=== PATIENT | male | born 1980 ===

== ENCOUNTER 2017-03-08 11:52 | Emergency (ER) | payer OTHER ==
--- NOTE | 2017-03-08 13:26 | RAD ---
HISTORY: Cough COMPARISON: 11/01/2016 TECHNIQUE: Chest PA and lateral FINDINGS: LUNGS: No active pulmonary disease. PLEURA: No significant pleural effusion identified. No pneumothorax apparent. CARDIOVASCULAR: Normal. OSSEOUS STRUCTURES: No significant abnormalities. VISUALIZED UPPER ABDOMEN: Normal. OTHER FINDINGS: None. IMPRESSION: No active disease.
--- NOTE | 2017-03-08 13:33 | C.PDOC ---
History Of Present Illness A 36 year old male presents to the emergency room for the evaluation of diffuse body aches and subjective fever since yesterday. Patient also reports a self- limited short episode of left sided chest pain yesterday. At the present time, patient denies any chest pain, shortness of breath, fever, chills, abdominal pain, nausea, vomiting, diarrhea, headaches, dizziness, or any other complaints. Time Seen by Provider: 03/08/17 13:05 Chief Complaint (Nursing): Flu-like Symptoms History Per: Patient History/Exam Limitations: no limitations Onset/Duration Of Symptoms: Days (2) Current Symptoms Are (Timing): Still Present Location Of Pain: Diffuse Myalgias Sick Contacts (Context): None Associated Symptoms: Fever (Subjective) Ear Symptoms: Bilateral: None Severity: Mild Recent travel outside of the [place]: No Past Medical History Reviewed: Historical Data, Nursing Documentation, Vital Signs Vital Signs: Last Vital Signs Temp 98.2 F 03/08/17 11:56 Pulse 87 03/08/17 11:56 Resp 20 03/08/17 11:56 BP 141/98 H 03/08/17 11:56 Pulse Ox 97 03/08/17 13:39 - [facility] Procedures CLOSURE SKIN & SUBCUTANEOUS NEC (07/21/13) INJECT/INFUSE NEC (07/20/05) PLAST OP HAND W GRFT NEC (07/26/13) TETANUS TOXOID ADMINIST (07/21/13) Family History: States: Unknown Family Hx - Social History Hx Tobacco Use: No Hx Alcohol Use: Yes Hx Substance Use: No - Immunization History Hx Tetanus Toxoid Vaccination: Yes Hx Influenza Vaccination: Yes (08/2014) Hx Pneumococcal Vaccination: No Review Of Systems Except As Marked, All Systems Reviewed And Found Negative. Constitutional: Positive for: Fever (Subjective - yesterday). Negative for: Chills Cardiovascular: Positive for: Chest Pain (Short episode yesterday. Currently resolved.). Negative for: Palpitations Respiratory: Negative for: Cough, Shortness of Breath, Wheezing Gastrointestinal: Negative for: Nausea, Vomiting, Abdominal Pain, Diarrhea Musculoskeletal: Positive for: Other (Diffuse body aches) Neurological: Negative for: Headache, Dizziness Physical Exam - Physical Exam Appears: Well, Non-toxic, No Acute Distress Skin: Normal Color, Warm, Dry Head: Atraumatic, Normacephalic Eye(s): bilateral: Normal Inspection Ear(s): Bilateral: Normal Nose: Normal, No Epistaxis, No Tenderness Oral Mucosa: Moist Tongue: Normal Appearing, No Swelling Lips: Normal Appearing, No Swelling Throat: Normal, No Erythema, No Exudate Neck: Normal, Normal ROM, No Midline Cervical Tenderness, No Paracervical Tenderness, Supple Chest: Symmetrical, No Deformity, No Tenderness Cardiovascular: Rhythm Regular Respiratory: Normal Breath Sounds, No Rales, No Rhonchi, No Wheezing Gastrointestinal/Abdominal: Normal Exam, Soft, No Tenderness, No Guarding, No Rebound Back: Normal Inspection, No Vertebral Tenderness Extremity: No Tenderness, No Pedal Edema, No Deformity, No Swelling Neurological/Psych: Oriented x3, Normal Speech, Normal Cognition, Normal Motor, Normal Sensation, Normal Reflexes ED Course And Treatment ECG: Interpreted By Me, Viewed By Me ECG Rhythm: Sinus Rhythm ECG Interpretation: Normal, No Acute Changes Interpretation Of ECG: No acute ST or T wave changes. No STEMI. Rate From EC O2 Sat by Pulse Oximetry: 97 Pulse Ox Interpretation: Normal - Radiology CXR: Interpreted by Me, Viewed By Me CXR Interpretation: Yes: No Acute Disease Progress Note: CXR and Influenza A B ordered. On re-evaluation, pt is afebrile , hemodynmaicaly s table. non-toxic. PulseOx 98%RA. ENT: no acute finidngs. neck: (-) meningeal sign. Lungs: CTA B/L, BS equal B/L. CVS: (+)S1S2, reg. Abd: benign. CXR, Influenza A (-). EKG- appears normal study. Pt has clinical findings c/w viral illness. Pt advised. ref. to F/u with PMD in 2-3 days for re-eval. return to ED if any worsening or new changes. Disposition Counseled Patient/Family Regarding: Studies Performed, Diagnosis, Need For Followup, Rx Given - Disposition Disposition: HOME/ ROUTINE Disposition Time: 13:20 Condition: STABLE Additional Instructions: Encourage fluids Bedrest for 2 days Follow up with PMD in 2-3 days for re-evaluation. Return to Ed if any worsening or new changes. Instructions: Viral Syndrome (ED) Forms: Work Excuse - Clinical Impression Clinical Impression: Influenza-like illness - Scribe Statement The provider has reviewed the documentation as recorded by the Enrique Torres All medical record entries made by the Enrique were at my direction and personally dictated by me. I have reviewed the chart and agree that the record accurately reflects my personal performance of the history, physical exam, medical decision making, and the department course for this patient. I have also personally directed, reviewed, and agree with the discharge instructions and disposition.
[2017-03-08 14:42] VITALS: BP 132/75; PULSE 85; RESP 18; TEMP 98.5; O2SAT 98
--- NOTE | 2017-03-11 08:32 | CARD ---
APPROVED REPORT EKG Measurement Heart [id number] <Conclusion> Normal sinus rhythm Normal ECG
== END 2017-03-08 14:44 | disposition home or self-care (01) ==
LOC: C.ER 11:52 → SUPCPDRO 11:52 → C.ER 14:44
DX: J11.1 Influenza due to unidentified influenza virus with other respiratory manifestations (principal)

== ENCOUNTER 2017-06-16 16:36 | Emergency (ER) | payer OTHER ==
[2017-06-16] MEDS ORDERED: Sodium Chloride 0.9% 1,000 ML IV ONE ×2 (17:05→18:44)
--- NOTE | 2017-06-16 17:08 | C.PDOC ---
History Of Present Illness <Carolee Redman - Last Filed: 06/16/17 18:47> <BensonHuiJose Juan R - Last Filed: 06/16/17 20:30> 37 year old male who presents to the ER with a complaint of generalized body aches, fever, and headache. Denies nausea, vomiting, or cough. (ЮлияBrittny scottCarolee A) History Per: Patient History/Exam Limitations: no limitations Onset/Duration Of Symptoms: Days Current Symptoms Are (Timing): Still Present Location Of Pain: Diffuse Myalgias, Headache Sick Contacts (Context): None Associated Symptoms: Fever, Myalgias. denies: Cough, Vomiting, Diarrhea Ear Symptoms: Bilateral: None Recent travel outside of the [place]: No <Carolee Redman - Last Filed: 06/16/17 18:47> <BensonJose Juan R - Last Filed: 06/16/17 20:30> Time Seen by Provider: 06/16/17 16:57 Chief Complaint (Nursing): Flu-like Symptoms Past Medical History Reviewed: Historical Data, Nursing Documentation, Vital Signs - Medical History PMH: No Chronic Diseases Surgical History: No Surg Hx Family History: States: Unknown Family Hx - Social History Hx Tobacco Use: No Hx Alcohol Use: Yes Hx Substance Use: No - Immunization History Hx Tetanus Toxoid Vaccination: Yes Hx Influenza Vaccination: Yes (08/2014) Hx Pneumococcal Vaccination: No <Carolee Redman - Last Filed: 06/16/17 18:47> <MarcelinoJose Juan R - Last Filed: 06/16/17 20:30> Vital Signs: Last Vital Signs Temp 99.9 F H 06/16/17 20:24 Pulse 107 H 06/16/17 20:24 Resp 18 06/16/17 20:24 BP 121/65 06/16/17 20:24 Pulse Ox 96 06/16/17 20:24 - [facility] Procedures CLOSURE SKIN & SUBCUTANEOUS NEC (07/21/13) INJECT/INFUSE NEC (07/20/05) PLAST OP HAND W GRFT NEC (07/26/13) TETANUS TOXOID ADMINIST (07/21/13) Review Of Systems Constitutional: Positive for: Fever. Negative for: Chills Respiratory: Negative for: Cough Gastrointestinal: Negative for: Nausea, Vomiting Musculoskeletal: Positive for: Other (Generalized body aches) Neurological: Positive for: Headache <Carolee Redman Last Filed: 06/16/17 18:47> Physical Exam - Physical Exam Appears: Non-toxic Skin: Normal Color, Warm, Dry Head: Atraumatic, Normacephalic Eye(s): bilateral: Normal Inspection, PERRL, EOMI Nose: Normal Oral Mucosa: Moist Throat: Normal Neck: Normal, Supple Chest: Symmetrical, No Tenderness Cardiovascular: Rhythm Regular, No Murmur Respiratory: Normal Breath Sounds, No Rales, No Rhonchi, No Wheezing Gastrointestinal/Abdominal: Soft, No Tenderness Extremity: Normal ROM (x4) Neurological/Psych: Oriented x3, Normal Speech, Normal Cognition, Normal Motor, Normal Sensation Gait: Steady <Carolee Redman Last Filed: 06/16/17 18:47> ED Course And Treatment - Laboratory Results Result Diagrams: 06/16/17 18:05 06/16/17 18:05 O2 Sat by Pulse Oximetry: 98 (Room air) Pulse Ox Interpretation: Normal Progress Note: Blood work, CXR, and urinalysis ordered. Toradol, reglan, and IV fluids administered. <Carolee Redman - Last Filed: 06/16/17 18:47> - Laboratory Results Result Diagrams: 06/16/17 18:05 06/16/17 18:05 <Jose Juan Benson - Last Filed: 06/16/17 20:30> Disposition - Disposition Disposition Time: 19:00 - POA Present On Arrival: None <Carolee Redman Last Filed: 06/16/17 18:47> Counseled Patient/Family Regarding: Studies Performed, Diagnosis - Disposition Disposition Time: 20:29 <Jose Juan Benson - Last Filed: 06/16/17 20:30> - Disposition Referrals: [facility] [Outside] Disposition: HOME/ ROUTINE Condition: STABLE Prescriptions: Acetaminophen [Tylenol 325mg tab] 650 mg PO Q4 #20 tab Instructions: Fever in Adults (ED) Forms: [facility] (Portuguese) - Clinical Impression Clinical Impression: Fever, Viral illness - Scribe Statement The provider has reviewed the documentation as recorded by the Scribe <Carolee Redman Last Filed: 06/16/17 18:47> <Jose Juan Benson - Last Filed: 06/16/17 20:30> - Scribe Statement Carlito Tsai All medical record entries made by the Scribe were at my direction and personally dictated by me. I have reviewed the chart and agree that the record accurately reflects my personal performance of the history, physical exam, medical decision making, and the department course for this patient. I have also personally directed, reviewed, and agree with the discharge instructions and disposition. (Carolee Redman) Physician Patient Turnover Patient Signed Over To: Jose Juan Benson Handoff Comments: pending temp and additional fluids <Carolee Redman - Last Filed: 06/16/17 18:47>
--- NOTE | 2017-06-16 17:29 | RAD ---
HISTORY: SOB COMPARISON: Chest x-ray performed 03/08/17 TECHNIQUE: Chest PA and lateral FINDINGS: LUNGS: No focal consolidation. Please note that chest x-ray has limited sensitivity for the detection of pulmonary masses. PLEURA: No significant pleural effusion identified. No definite pneumothorax . CARDIOVASCULAR: The cardiomediastinal silhouette appears within normal limits of size. OSSEOUS STRUCTURES: No acute osseous abnormality identified. VISUALIZED UPPER ABDOMEN: Unremarkable. OTHER FINDINGS: None. IMPRESSION: No focal consolidation, significant pleural effusion, or definite pneumothorax identified.
[2017-06-16] MEDS ORDERED: Sodium Chloride 0.9% 1,000 ML ONE ×2 (17:53→18:55)
[2017-06-16 18:11] LABS: BASO % 0.4 % (0.0-2.0); EOS % 0.1 % (0.0-4.0); HEMATOCRIT 45.5 % (35.0-51.0); LYMPH # 0.6 K/uL (1.0-4.3); MEAN CELL VOLUME 88.3 fL (80.0-94.0); MEAN CORPUSCULAR HEMOGLOBIN 30.8 pg (27.0-31.0); MEAN CORPUSCULAR HGB CONC 34.9 g/dL (33.0-37.0); MEAN PLATELET VOLUME 7.4 fL (7.2-11.7); MONO # 0.7 K/uL (0.0-0.8); MONO % 7.3 % (0.0-10.0); PLATELET COUNT 211 K/uL (130-400); RED CELL DISTRIBUTION WIDTH 13.1 % (11.5-14.5); WHITE BLOOD COUNT 9.2 K/uL (4.8-10.8)
[2017-06-16 18:17] LABS: CHLORIDE 98 mmol/L (98-107); SODIUM 138 mmol/L (132-148)
[2017-06-16 18:19] LABS: ALB/GLOB RATIO 1.2 (1.0-2.1); ALKALINE PHOSPHATASE 120 U/L (38-126); AST/SGOT 59 U/L (17-59); BILIRUBIN,TOTAL 0.7 mg/dL (0.2-1.3); CARBON DIOXIDE 25 mmol/L (22-30); GFR AFRICAN-AMERICAN > 60; TOTAL PROTEIN 7.7 g/dL (6.3-8.3)
[2017-06-16 18:20] LABS: ALT/SGPT 99 U/L (21-72); BLOOD UREA NITROGEN 10 mg/dL (9-20); CALCIUM 8.9 mg/dl (8.6-10.4); GLUCOSE,RANDOM 91 mg/dL (75-110)
[2017-06-16 18:34] LABS: RBC URINE < 1 /hpf (0-3); URINE BILIRUBIN NEGATIVE (NEGATIVE); URINE BLOOD NEGATIVE (NEGATIVE); URINE COLOR Straw (YELLOW); URINE GLUCOSE (UA) NORMAL (Normal); URINE KETONE NEGATIVE (NEGATIVE); URINE LEUKOCYTE ESTERASE NEG Leu/uL (Negative); URINE PROTEIN NEGATIVE (NEGATIVE); URINE UROBILINOGEN NORMAL mg/dL (0.2-1.0); WBC URINE < 1 /hpf (0-5)
[2017-06-16 18:47] VITALS: RESP 18
[2017-06-16 18:49] LABS: NEUTROPHIL 90 % (50-75); REACTIVE LYMPHOCYTES 1 % (0-0); TOTAL CELLS COUNTED 100
[2017-06-16 20:27] VITALS: BP 121/65; PULSE 107; TEMP 99.9; O2SAT 96
== END 2017-06-16 20:39 | disposition home or self-care (01) ==
LOC: C.ER 16:36
DX: B34.9 Viral infection, unspecified (principal); R50.81 Fever presenting with conditions classified elsewhere
CPT/HCPCS: 71020; 80053; 81001; 85025; 87804; 96361; 96374; 96375; 99285; J1885; J2765; J7040

== ENCOUNTER 2017-06-18 20:27 | Emergency (ER) | payer OTHER ==
[2017-06-18 20:44] VITALS: BP 176/82; PULSE 16; RESP 97; TEMP 100.6; O2SAT 94
--- NOTE | 2017-06-18 21:03 | C.PDOC ---
History Of Present Illness 37 year old male who presents to the ER with a complaint of generalized body aches, fever, and headache. Denies nausea, vomiting, or cough. Patient seen in ED 2 days ago and diagnosed with virus, and patient reports symptoms persist. Time Seen by Provider: 06/18/17 20:52 Chief Complaint (Nursing): Flu-like Symptoms History Per: Patient History/Exam Limitations: no limitations Onset/Duration Of Symptoms: Days Current Symptoms Are (Timing): Still Present Location Of Pain: Diffuse Myalgias, Headache Associated Symptoms: Fever. denies: Cough, Nausea, Vomiting, Diarrhea Severity: Mild Recent travel outside of the [place]: No Past Medical History Reviewed: Historical Data, Nursing Documentation, Vital Signs Vital Signs: Last Vital Signs Temp 100.6 F H 06/18/17 20:39 Pulse 16 L 06/18/17 20:39 Resp 97 H 06/18/17 20:39 BP 176/82 H 06/18/17 20:39 Pulse Ox 94 L 06/18/17 21:17 - Medical History PMH: No Chronic Diseases - [facility] Procedures CLOSURE SKIN & SUBCUTANEOUS NEC (07/21/13) INJECT/INFUSE NEC (07/20/05) PLAST OP HAND W GRFT NEC (07/26/13) TETANUS TOXOID ADMINIST (07/21/13) Family History: States: Unknown Family Hx - Social History Hx Tobacco Use: No Hx Alcohol Use: Yes Hx Substance Use: No - Immunization History Hx Tetanus Toxoid Vaccination: Yes Hx Influenza Vaccination: Yes (08/2014) Hx Pneumococcal Vaccination: No Review Of Systems Constitutional: Positive for: Fever, Malaise, Other (generalized body aches) ENT: Negative for: Ear Pain, Nose Congestion, Throat Pain Cardiovascular: Negative for: Chest Pain, Palpitations Respiratory: Negative for: Cough, Shortness of Breath Gastrointestinal: Negative for: Nausea, Vomiting, Diarrhea Musculoskeletal: Positive for: Other (bodyaches) Skin: Negative for: Rash Neurological: Positive for: Headache Physical Exam - Physical Exam Appears: Non-toxic, No Acute Distress Skin: Warm, Dry, No Rash Head: Atraumatic, Normacephalic Eye(s): bilateral: Normal Inspection, EOMI Ear(s): Bilateral: Normal Nose: Normal Oral Mucosa: Moist Throat: Normal, No Erythema Neck: Normal, Normal ROM, Supple Chest: Symmetrical Cardiovascular: Rhythm Regular Respiratory: Normal Breath Sounds, No Rales, No Rhonchi, No Wheezing Gastrointestinal/Abdominal: Normal Exam, Soft, No Tenderness Extremity: Bilateral: Atraumatic, Normal Color And Temperature, Normal ROM Neurological/Psych: Oriented x3, Normal Speech Gait: Steady ED Course And Treatment O2 Sat by Pulse Oximetry: 94 (room air) Pulse Ox Interpretation: Normal Medical Decision Making Medical Decision Makin37 year old male who presents to the ER with a complaint of generalized body aches, fever, and headache. Patient seen in ED 2 days ago with full workup including EKG, CXR and labs. All diagnostics reviewed with no acute findings and patient diagnosed with virus. On exam today in ED patient appears nontoxic and in no acute distress, he has low grade fever. Patient is asking for work note to return on Wednesday. Advise patient to drink fluids and rest and continue with Motrin or Tylenol for fever every 6 hours. Disposition Counseled Patient/Family Regarding: Diagnosis, Need For Followup, Rx Given - Disposition Disposition: HOME/ ROUTINE Disposition Time: 21:02 Condition: STABLE Additional Instructions: You have viral infection. Take Tylenol or Motrin alternating every 4-6 hours for Fever 100.4F or higher. Rest and drink plenty of fluids. 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 - Scribe Statement The provider has reviewed the documentation as recorded by the Enrique Rahman All medical record entries made by the Enrique were at my direction and personally dictated by me. I have reviewed the chart and agree that the record accurately reflects my personal performance of the history, physical exam, medical decision making, and the department course for this patient. I have also personally directed, reviewed, and agree with the discharge instructions and disposition.
== END 2017-06-18 21:15 | disposition home or self-care (01) ==
LOC: C.ER 20:27
DX: B34.9 Viral infection, unspecified (principal); R50.9 Fever, unspecified

== ENCOUNTER 2017-09-06 09:00 | Emergency (ER) | payer OTHER ==
[2017-09-06 09:11] VITALS: TEMP 98.7
[2017-09-06] MEDS ORDERED: Sodium Chloride 0.9% 1,000 ML IV ONE (09:48)
[2017-09-06] MEDS ORDERED: Sodium Chloride 0.9% 1,000 ML ONE (10:02)
[2017-09-06 10:09] LABS: BASO % 0.7 % (0.0-2.0); EOS % 0.6 % (0.0-4.0); HEMATOCRIT 50.5 % (35.0-51.0); LYMPH # 1.4 K/uL (1.0-4.3); LYMPH % 32.3 % (20.0-40.0); MEAN CELL VOLUME 89.7 fL (80.0-94.0); MEAN CORPUSCULAR HEMOGLOBIN 30.8 pg (27.0-31.0); MEAN CORPUSCULAR HGB CONC 34.4 g/dL (33.0-37.0); MEAN PLATELET VOLUME 7.4 fL (7.2-11.7); MONO # 0.5 K/uL (0.0-0.8); MONO % 11.4 % (0.0-10.0); NRBC % 0.3 % (0.0-2.0); RED CELL DISTRIBUTION WIDTH 13.5 % (11.5-14.5)
[2017-09-06 10:15] LABS: CHLORIDE 101 mmol/L (98-107); POTASSIUM 4.3 mmol/L (3.6-5.2); SODIUM 137 mmol/L (132-148)
[2017-09-06 10:17] LABS: BILIRUBIN,TOTAL 0.6 mg/dL (0.2-1.3); GFR AFRICAN-AMERICAN > 60
[2017-09-06 10:18] LABS: ALB/GLOB RATIO 1.2 (1.0-2.1); ALKALINE PHOSPHATASE 133 U/L (38-126); ALT/SGPT 138 U/L (21-72); AST/SGOT 76 U/L (17-59); BLOOD UREA NITROGEN 10 mg/dL (9-20); CARBON DIOXIDE 24 mmol/L (22-30); GLUCOSE,RANDOM 108 mg/dL (75-110); TOTAL PROTEIN 8.5 g/dL (6.3-8.3)
[2017-09-06 10:19] LABS: CALCIUM 8.8 mg/dl (8.6-10.4)
[2017-09-06 10:23] LABS: WHITE BLOOD COUNT 4.2 K/uL (4.8-10.8)
--- NOTE | 2017-09-06 11:25 | CT ---
PROCEDURE: CT scan temporal bones dated 09/06/2017. . HISTORY: Right side pain/swelling, r/o mastoiditis. COMPARISON: No prior study available for comparison. TECHNIQUE: .High resolution axial images of the temporal bones were obtained. Coronal and sagittal reformats were generated.. Radiation dose: Total exam DLP = 706.54 mGy-cm. This CT exam was performed using one or more of the following dose reduction techniques: Automated exposure control, adjustment of the mA and/or kV according to patient size, and/or use of iterative reconstruction technique. FINDINGS: RIGHT TEMPORAL BONE: RIGHT MIDDLE EAR: Normal. RIGHT INNER EAR: Cochlea: Normal. Semicircular canals: Normal. RIGHT MASTOID AIR CELLS: Normal. RIGHT INTERNAL AUDITORY CANAL: Normal. RIGHT EXTERNAL AUDITORY CANAL: Normal. RIGHT VESTIBULAR AND COCHLEAR AQUEDUCT: Normal. OTHER FINDINGS: None. LEFT TEMPORAL BONE: LEFT MIDDLE EAR: Normal. LEFT INNER EAR: Cochlea: Normal. Semicircular canals: Normal. LEFT MASTOID AIR CELLS: Normal. LEFT INTERNAL AUDITORY CANAL: Normal. LEFT EXTERNAL AUDITORY CANAL: Normal. LEFT VESTIBULAR AND COCHLEAR AQUEDUCTS: Normal. OTHER FINDINGS: None. IMPRESSION: Unremarkable non contrast enhanced CT of the temporal bones.. The note is made of a prominent elliptical shaped focus of polypoid like mucosal thickening and a mucous retention cyst formation within the right maxillary sinus.
--- NOTE | 2017-09-06 11:49 | C.PDOC ---
History Of Present Illness Pt c/o body aches and pain/swelling behind his right ear. Time Seen by Provider: 09/06/17 09:33 Chief Complaint (Nursing): Headache History Per: Patient Onset/Duration Of Symptoms: Days (2), Gradual Current Symptoms Are (Timing): Still Present Severity: Moderate Front/Back Head: 1 - pain/swelling Quality: "Pain" Associated Symptoms: denies: Photophobia, Blurred Vision, Vomiting, Extremity Weakness Recent travel outside of the [place]: Yes (Returned from [place] last week) Additional History Per: Prior Records Past Medical History Reviewed: Historical Data, Nursing Documentation, Vital Signs Vital Signs: Last Vital Signs Temp 98.7 F 09/06/17 09:09 Pulse 90 09/06/17 09:09 Resp 20 09/06/17 09:09 BP 154/93 H 09/06/17 09:09 Pulse Ox 98 09/06/17 09:09 - Medical History PMH: No Chronic Diseases Surgical History: No Surg Hx - [facility] Procedures CLOSURE SKIN & SUBCUTANEOUS NEC (07/21/13) INJECT/INFUSE NEC (07/20/05) PLAST OP HAND W GRFT NEC (07/26/13) TETANUS TOXOID ADMINIST (07/21/13) Family History: States: Unknown Family Hx - Social History Hx Tobacco Use: No Hx Alcohol Use: Yes Hx Substance Use: No - Immunization History Hx Tetanus Toxoid Vaccination: No Hx Influenza Vaccination: Yes Hx Pneumococcal Vaccination: No Review Of Systems Except As Marked, All Systems Reviewed And Found Negative. Constitutional: Positive for: Malaise. Negative for: Fever Eyes: Negative for: Pain, Vision Change ENT: Negative for: Ear Pain, Ear Discharge, Nose Congestion, Throat Pain Cardiovascular: Negative for: Chest Pain Respiratory: Negative for: Cough, Shortness of Breath Gastrointestinal: Negative for: Vomiting, Abdominal Pain, Diarrhea Genitourinary: Negative for: Dysuria Musculoskeletal: Negative for: Neck Pain Skin: Positive for: Rash (on buttock for 2 weeks, itchy.) Neurological: Negative for: Weakness, Numbness, Incoordination, Change in Speech , Confusion, Seizures, Altered Mental Status Physical Exam - Physical Exam Appears: Non-toxic, No Acute Distress Skin: Normal Color, Warm, Dry, Rash (on gluteal cleft, looks fungal) Head: Atraumatic, Swelling (small swollen, tender area behing the right ear) Eye(s): bilateral: PERRL, EOMI, Other (conjunctival injection) Ear(s): Bilateral: Normal Throat: Normal Neck: Normal ROM, Supple Lymphatic: Adenopathy (cervical) Cardiovascular: Rhythm Regular Respiratory: Normal Breath Sounds, No Accessory Muscle Use Gastrointestinal/Abdominal: Soft, No Tenderness Back: No CVA Tenderness Extremity: Normal ROM Neurological/Psych: Oriented x3, Normal Speech, Normal Cognition, Normal Motor, Normal Sensation ED Course And Treatment - Laboratory Results Result Diagrams: 09/06/17 10:02 09/06/17 10:02 O2 Sat by Pulse Oximetry: 98 Pulse Ox Interpretation: Normal - CT Scan/US CT Mastoids Other Rad Studies (CT/US): Read By Radiologist, Radiology Report Reviewed CT/US Interpretation: IMPRESSION: Unremarkable non contrast enhanced CT of the temporal bones.. The note is made of a prominent elliptical shaped focus of polypoid like mucosal thickening and a mucous retention cyst formation within the right maxillary sinus. Progress - Interventions Interventions:: Observation, Intravenous fluid - Medications Administered Intravenous: NSAID - Data Reviewed Data Reviewed: Lab, Diagnostic imaging, Old records - Patient Status Patient status: Mostly improved - Continuity of Care Discussed patient case with:: Patient, ED Nurse - Patient Plan Patient Plan: Discharge, F/U with PCP Disposition Counseled Patient/Family Regarding: Studies Performed, Diagnosis, Need For Followup, Rx Given - Disposition Disposition: HOME/ ROUTINE Disposition Time: 11:51 Condition: IMPROVED Additional Instructions: Drink plenty of fluids. Follow up with your doctor this week for further evaluation and treatment. Return to the ER if you develop high fever, lethargy, vomiting, worsening of symptoms or if you have any other concerns. Prescriptions: Amoxicillin/Clavulanate [Augmentin 875 MG-125 MG] 1 tab PO BID #20 tab Clotrimazole 1% Cream [Lotrimin 1%] 1 applic EXT BID #1 tube Instructions: Tinea Corporis (ED) Forms: [facility] (Urdu), General Discharge Instructions, Work Excuse - Clinical Impression Clinical Impression: Swelling, mass, or lump in head and neck, Tinea
[2017-09-06 12:07] VITALS: BP 126/76; PULSE 79; RESP 18; O2SAT 99
== END 2017-09-06 12:07 | disposition home or self-care (01) ==
LOC: C.ER 09:00
DX: R22.0 Localized swelling, mass and lump, head (principal); R22.1 Localized swelling, mass and lump, neck; B35.9 Dermatophytosis, unspecified
CPT/HCPCS: 70480; 80053; 85025; 96361; 96374; 99285; J1885; J7040

== ENCOUNTER 2018-10-15 13:52 | Observation (INO) | payer OTHER ==
--- NOTE | 2018-10-15 15:06 | C.PDOC ---
History Of Present Illness 38 yr old male w/ hx of lap band surgery 10 years prior p/w abdominal pain, fever, nausea. All began at 0300 this morning, first time occurence. No vomiting or diarrhea or constipation. No dark or bloody stool. Pt denies any cough. No dysuria, urgency of frequency. No chest pain or sob No headache No neck stiffness no rash No fall or trauma No complaints. Bariatric Surgeon: Dr. Mandujano Time Seen by Provider: 10/15/18 15:06 Chief Complaint (Nursing): Abdominal Pain Past Medical History Vital Signs: Last Vital Signs Temp 101.4 F H 10/15/18 14:12 Pulse 131 H 10/15/18 14:12 Resp 20 10/15/18 14:12 BP 144/92 H 10/15/18 14:12 Pulse Ox 97 10/15/18 14:12 - [facility] Procedures CLOSURE SKIN & SUBCUTANEOUS NEC (07/21/13) INJECT/INFUSE NEC (07/20/05) PLAST OP HAND W GRFT NEC (07/26/13) TETANUS TOXOID ADMINIST (07/21/13) Family History: States: Unknown Family Hx - Social History Hx Tobacco Use: No Hx Alcohol Use: Yes Hx Substance Use: No - Immunization History Hx Tetanus Toxoid Vaccination: No Hx Influenza Vaccination: Yes Hx Pneumococcal Vaccination: No Review Of Systems Constitutional: Positive for: Fever, Chills Eyes: Negative for: Pain, Vision Change ENT: Negative for: Ear Pain, Ear Discharge Cardiovascular: Negative for: Chest Pain, Palpitations, Edema Respiratory: Negative for: Cough, Shortness of Breath, SOB with Excertion Gastrointestinal: Positive for: Nausea, Abdominal Pain. Negative for: Vomiting, Diarrhea, Constipation, Melena, Hematochezia, Hematemesis Genitourinary: Negative for: Dysuria, Frequency, Penile Discharge, Scrotal Pain, Rash, Penile Pain Musculoskeletal: Negative for: Neck Pain, Shoulder Pain Skin: Negative for: Rash, Lesions Neurological: Negative for: Weakness, Numbness Physical Exam - Physical Exam Appears: Well, Non-toxic, No Acute Distress Skin: Normal Color, Warm Head: Atraumatic, Normacephalic Eye(s): bilateral: Normal Inspection, PERRL, EOMI Nose: Normal, No Flaring, No Discharge Oral Mucosa: Moist Tongue: Normal Appearing Lips: Normal Appearing Teeth: Normal Dentition Gingiva: Normal Appearing Throat: Normal, No Erythema, No Exudate Neck: Normal, Normal ROM, Supple, Other (no meningeal signs) Chest: Symmetrical, No Deformity Cardiovascular: Rhythm Regular Respiratory: Normal Breath Sounds Gastrointestinal/Abdominal: Normal Exam, No Tenderness, No Mass, No Distention, No Guarding, No Rebound, No Hernia, No Ascites Back: Normal Inspection, No CVA Tenderness Extremity: Normal ROM Neurological/Psych: Oriented x3, Normal Speech, Normal Cognition Gait: Steady ED Course And Treatment - Laboratory Results Result Diagrams: 10/15/18 15:12 10/15/18 15:12 O2 Sat by Pulse Oximetry: 97 Medical Decision Making Medical Decision Makin yr old male p/w nausea, abdominal pain and chills. Will seek imaging given hx of lap band. Largely unremarkable abd exam otherwise, non-ttp. Likely viral gastro. Pending imaging and labs. 1800 CT: Mesenteric adenitis: lap band in place. Dr. Mandujano, bariatric surgery, was paged. Waiting for response. 180 2nd L of fluids hanging Spoke with Dr. James on for Dr. Mandujano. No further indication for images or tests. Pain likely non-related to lap band. 1950 pt remains in NAD, protecting airway and without pleurtic chest pain labs largely unremarkable however remains tachy: and still with abd pain. Given recurrent pain and tachy: will likely seek obs Appreciate consult w/ Dr. Garrison: to admit to his service Disposition - Disposition Disposition Time: 19:51 Condition: GOOD - Clinical Impression Clinical Impression: Abdominal pain, Mesenteric adenitis
[2018-10-15] MEDS ORDERED: Sodium Chloride 0.9% 1,000 ML IV ONE (15:13)
[2018-10-15 15:16] LABS: BASO % 0.4 % (0.0-2.0); EOS % 0.1 % (0.0-4.0); HEMOGLOBIN 17.3 g/dL (12.0-18.0); LYMPH # 0.5 K/uL (1.0-4.3); MEAN CELL VOLUME 89.3 fL (80.0-94.0); MEAN CORPUSCULAR HEMOGLOBIN 31.1 pg (27.0-31.0); MEAN CORPUSCULAR HGB CONC 34.9 g/dL (33.0-37.0); MEAN PLATELET VOLUME 7.6 fL (7.2-11.7); MONO # 0.5 K/uL (0.0-0.8); NEUT # 11.3 K/uL (1.8-7.0); NEUT % 91.5 % (50.0-75.0); PLATELET COUNT 262 K/uL (130-400); RBC 5.57 Mil/uL (4.40-5.90); RED CELL DISTRIBUTION WIDTH 13.1 % (11.5-14.5); WHITE BLOOD COUNT 12.3 K/uL (4.8-10.8)
[2018-10-15 15:22] LABS: SQUAMOUS EPITHIAL < 1 /hpf (0-5); URINE BILIRUBIN NEGATIVE (NEGATIVE); URINE BLOOD 1+ (NEGATIVE); URINE CLARITY Clear (Clear); URINE COLOR Yellow (YELLOW); URINE GLUCOSE (UA) NORMAL (Normal); URINE LEUKOCYTE ESTERASE NEG Leu/uL (Negative); URINE PROTEIN NEGATIVE (NEGATIVE); URINE UROBILINOGEN NORMAL mg/dL (0.2-1.0)
[2018-10-15] MEDS ORDERED: Sodium Chloride 0.9% 1,000 ML ONE ×2 (15:26→18:22)
[2018-10-15 15:31] LABS: ALB/GLOB RATIO 1.2 (1.0-2.1); ALBUMIN 4.3 g/dL (3.5-5.0); ALT/SGPT 70 U/L (21-72); AST/SGOT 45 U/L (17-59); BLOOD UREA NITROGEN 14 mg/dL (9-20); CALCIUM 8.4 mg/dl (8.6-10.4); GFR NON-AFRICAN AMERICAN > 60; LIPASE 78 U/L (23-300)
[2018-10-15 15:44] LABS: BANDS 1 % (0-2); LARGE PLATELETS PRESENT; LYMPHOCYTE 3 % (20-40); MONOCYTE 3 % (0-10); NEUTROPHIL 93 % (50-75); PLATELET ESTIMATE NORMAL (NORMAL); TOTAL CELLS COUNTED 100
--- NOTE | 2018-10-15 16:57 | CT ---
Date of service: 10/15/2018 PROCEDURE: CT Abdomen and Pelvis with contrast HISTORY: hx of lap band, diffuse abd pain COMPARISON: None. TECHNIQUE: Contrast dose: 100 mL Visipaque 320 Radiation dose: Total exam DLP = 1278.45 mGy-cm. This CT exam was performed using one or more of the following dose reduction techniques: Automated exposure control, adjustment of the mA and/or kV according to patient size, and/or use of iterative reconstruction technique. FINDINGS: LOWER THORAX: Very small hiatal hernia. No infiltrate/effusion. LIVER: Diffusely diminished attenuation consistent with fatty infiltration. Mild hepatomegaly. Liver measures 22.8 cm craniocaudal. Smooth contour. No mass. No biliary dilatation. GALLBLADDER AND BILE DUCTS: Contracted. No calcified gallstones. PANCREAS: Unremarkable. No gross lesion or ductal dilatation. SPLEEN: Mild splenomegaly. The spleen measures 15.1 cm in greatest dimension. ADRENALS: Unremarkable. No mass. KIDNEYS AND URETERS: Unremarkable. No hydronephrosis. No solid mass. VASCULATURE: Unremarkable. No aortic aneurysm. No aortic atherosclerotic calcification or mural plaque present. BOWEL: A gastric band is noted. This is connected to a port over the right lower anterior abdominal wall. There is diverticulosis throughout the colon most prominently in the transverse colon. There is no evidence of diverticulitis. There is no bowel obstruction. APPENDIX: Normal appendix. PERITONEUM: Unremarkable. No free fluid. No free air. LYMPH NODES: Shotty subcentimeter lymph nodes are noted in the small bowel mesenteric and medial to the cecum/ascending colon. Nonspecific. Possible mesenteric adenitis. BLADDER: Unremarkable. REPRODUCTIVE: Normal prostate BONES: No acute fracture. OTHER FINDINGS: None. IMPRESSION: Gastric band in grossly appropriate position. Mild hepatosplenomegaly with fatty infiltration of the liver. Possible mesenteric adenitis. Colonic diverticulosis without evidence of diverticulitis. No other significant abnormality.
--- NOTE | 2018-10-15 18:12 | RAD ---
Date of service: 10/15/2018 HISTORY: febrile, tachy COMPARISON: 06/16/2017 TECHNIQUE: Chest PA and lateral FINDINGS: LUNGS: No active pulmonary disease. PLEURA: No significant pleural effusion identified. No pneumothorax apparent. CARDIOVASCULAR: No aortic atherosclerotic calcification present. Normal cardiac size. No pulmonary vascular congestion. OSSEOUS STRUCTURES: No significant abnormalities. VISUALIZED UPPER ABDOMEN: Normal. OTHER FINDINGS: None. IMPRESSION: No active disease.
[2018-10-15] MEDS: Sodium Chloride 0.9% 1,000 ML IV SCH (18:18)
[2018-10-15] MEDS ORDERED: Morphine 4 MG/ML VIAL ONE (20:03)
[2018-10-16] MEDS: Sodium Chloride 0.9% 1,000 ML IV SCH ×3 (05:53→13:46)
[2018-10-16] MEDS: Ciprofloxacin 400mg/200ml D5W 400 MG/200 ML BAG IVPB SCH (13:31)
[2018-10-16] MEDS: Belladonna-Phenobarbital PO SCH ×2 (14:14→17:33)
[2018-10-16] MEDS: metroNIDAZOLE IV 500 mg/100 ml 500 MG/100 ML BAG IVPB SCH (16:00)
[2018-10-17] MEDS: metroNIDAZOLE IV 500 mg/100 ml 500 MG/100 ML BAG IVPB SCH ×2 (00:36→10:38)
[2018-10-17] MEDS: Sodium Chloride 0.9% 1,000 ML IV SCH ×2 (00:40→10:39)
[2018-10-17] MEDS: Ciprofloxacin 400mg/200ml D5W 400 MG/200 ML BAG IVPB SCH ×2 (02:07→14:11)
--- NOTE | 2018-10-17 10:00 | HP ---
HISTORY OF PRESENT ILLNESS: A 38-year-old male with history of lap-band and now complaining of abdominal pain, nausea but no vomiting. The patient came to the ER, advised admission. PHYSICAL EXAMINATION: GENERAL: The patient is awake, alert, and oriented. VITAL SIGNS: Temperature 98, pulse 90. HEENT: Within normal limits. NECK: Supple. CHEST: Symmetrical. HEART: Regular. ABDOMEN: Soft. EXTREMITIES: No edema. ASSESSMENT AND PLAN: The patient suffers from mesenteric adenitis. The patient to bed rest, supportive care, intravenous fluids, and antibiotics. Vj Garrison MD
[2018-10-17] MEDS: Belladonna-Phenobarbital PO SCH ×2 (10:39→14:16)
[2018-10-17] MEDS ORDERED: Lidocaine Hydrochloride 5 ML INJ ONE (11:34)
[2018-10-17] MEDS ORDERED: Propofol 10 mg/ml Inj (20 ML) ONE ×2 (11:34)
[2018-10-17 12:27] VITALS: O2SAT 97
--- NOTE | 2018-10-17 13:43 | CP.PCM.PN ---
Subjective - Date & Time of Evaluation Date of Evaluation: 10/17/18 Time of Evaluation: 13:40 - Subjective Subjective: PGY3 Note for Dr. Bliss This patient was seen and examined at bedside; he denies any complaints overnight or this AM; states he has not had any nausea/vomiting since he was admitted to the hospital and denies all complaints and would like to go home. Objective - Vital Signs/Intake and Output Vital Signs (last 24 hours): Temp Pulse Resp BP Pulse Ox 98.3 F 73 12 118/75 97 10/17/18 11:50 10/17/18 12:20 10/17/18 12:20 10/17/18 12:20 10/17/18 12:45 Intake and Output: 10/17/18 10/17/18 06:59 18:59 Intake Total 1000 1550 Output Total 200 Balance 1000 1350 - Medications Medications: Current Medications Belladonna/Phenobarbital () 1 tab PO TID [facility] Last Admin: 10/17/18 10:39 Dose: Not Given Sodium Chloride (Sodium Chloride 0.9%) 1,000 mls @ 100 mls/hr IV .Q10H FABIAN Last Admin: 10/17/18 10:39 Dose: Not Given Ciprofloxacin (Cipro 400mg/200ml Dsw) 400 mg in 200 mls @ 133 mls/hr IVPB Q12H FABIAN; Protocol Last Admin: 10/17/18 02:07 Dose: 133 mls/hr Metronidazole (Flagyl) 500 mg in 100 mls @ 100 mls/hr IVPB Q8H FABIAN; Protocol Last Admin: 10/17/18 10:38 Dose: 100 mls/hr Metoclopramide HCl (Reglan) 5 mg IVP Q6 [facility]IAN Last Admin: 10/17/18 12:35 Dose: Not Given Sucralfate (Carafate Tab) 1 gm PO ACBHS FABIAN - Labs Labs: 10/15/18 15:12 10/15/18 15:12 - Constitutional Appears: Well, Non-toxic - Head Exam Head Exam: ATRAUMATIC, NORMAL INSPECTION - Eye Exam Eye Exam: EOMI, Normal appearance, PERRL Pupil Exam: NORMAL ACCOMODATION, PERRL - ENT Exam ENT Exam: Mucous Membranes Moist, Normal Exam - Respiratory Exam Respiratory Exam: Clear to Ausculation Bilateral, NORMAL BREATHING PATTERN. absent: Rales, Rhonchi, Wheezes - Cardiovascular Exam Cardiovascular Exam: REGULAR RHYTHM, +S1, +S2 - GI/Abdominal Exam GI & Abdominal Exam: Soft, Normal Bowel Sounds. absent: Bruit, Distended, Firm, Guarding, Rigid, Tenderness, Hypoactive Bowel Sounds, Mass, Organomegaly, Pulsatile Mass, Rebound - Extremities Exam Extremities Exam: Full ROM. absent: Calf Tenderness - Back Exam Back Exam: NORMAL INSPECTION. absent: CVA tenderness (L), CVA tenderness (R) - Neurological Exam Neurological Exam: Alert, Awake, Oriented x3 - Psychiatric Exam Psychiatric exam: Normal Affect - Skin Skin Exam: Warm Assessment and Plan - Assessment and Plan (Free Text) Assessment: 38yo M admitted for abdominal pain and nausea/vomiting which have resolved Abdominal pain/nausea/vomiting;resolved -hx of lap band surgery -EGD done; showed peptic ulcer disease; non bleeding; GI recommonds 1 mo f/u interval -protonix daily 40mg -regular diet patient takes no other medicines The patient is stable for d/c as per Dr. Bliss THe patient needs to followup with GI; Dr. Corado; within the month for a repeat EGD; it would be advised to followup earlier to schedule the EGD as this could take some time Raheem Mane PGY3
[2018-10-17 16:27] VITALS: BP 146/97; PULSE 78; RESP 20; TEMP 99.2
== END 2018-10-17 16:41 | disposition home or self-care (01) ==
LOC: C.ER 13:52 → C.9E 19:48 → C.3T 21:21
PROVIDERS: ADMIT Internal Medicine Pulmonary Disease; ATTEND Internal Medicine Pulmonary Disease
DX: I88.0 Nonspecific mesenteric lymphadenitis (principal); Z98.84 Bariatric surgery status; K44.9 Diaphragmatic hernia without obstruction or gangrene; K31.9 Disease of stomach and duodenum, unspecified; K25.7 Chronic gastric ulcer without hemorrhage or perforation; B96.81 Helicobacter pylori [H. pylori] as the cause of diseases classified elsewhere
CPT/HCPCS: 36415; 43239; 71046; 74177; 80053; 81001; 82550; 83690; 85025; 87040; 87804; 88305; 88342; 96361; 96365; 96366; 96367; 96372; 96375; 96376; 99285; G0378; J0744; J1885; J2270; J2405; J2765; J7030